=== PATIENT | female | born 1960 | race Caucasian/White ===

== ENCOUNTER → 2025-07-22 09:59 | Outpatient (REF) | payer MEDICARE, OTHER, SELFPAY | LOC: RCS 09:59 | PROVIDERS: ATTENDING PHYSICIAN Nurse Practitioner Family; FAMILY PHYSICIAN Family Medicine | DX: I48.92 Unspecified atrial flutter (principal); E78.5 Hyperlipidemia, unspecified | CPT/HCPCS: 93225; 93226; 93306 ==